=== PATIENT | male | born 1990 | race Caucasian/White ===

== ENCOUNTER 2018-04-30 12:03 | Inpatient (IN) | payer OTHER ==
[2018-04-30] MEDS ORDERED: CLINDAMYCIN 600 MG in DEXTROSE 5% IN WATER 50 ML IVPB STA ×2 (12:24)
--- NOTE | 2018-04-30 12:33 | ED ---
ENT HPI - General Chief complaint: Dental/Oral Stated complaint: Dental infection-face swollen Time Seen by Provider: 04/30/18 12:19 Source: patient, RN notes reviewed Mode of arrival: ambulatory Limitations: no limitations - History of Present Illness Initial comments: This is a 27-year-old male presents emergency Department with chief complaint of right-sided facial swelling pain. Patient states this started a few days ago in which she was initially seen in urgent care was given doxycycline. Patient then followed up with dentist and referred to another urgent care yesterday that he received IV antibiotics. His dentist prescribed him clindamycin 150 mg 4 times a day. Patient reports subjective fevers and chills at home. He complains of facial pain no headache no neck pain or neck stiffness. Patient denies any shortness of breath, cough or chest congestion. Patient states that they contact his dentist and told him that symptoms worsened again and he was advised to come emergency department. - Related Data Home Medications Medication Instructions Recorded Confirmed Clindamycin [Cleocin] 300 mg PO Q6H 04/30/18 04/30/18 Allergies Allergy/AdvReac Type Severity Reaction Status Date / Time No Known Allergies Allergy Verified 04/30/18 12:29 Review of Systems ROS Statement: Those systems with pertinent positive or pertinent negative responses have been documented in the HPI. ROS Other: All systems not noted in ROS Statement are negative. Past Medical History Past Medical History: No Reported History History of Any Multi-Drug Resistant Organisms: None Reported Additional Past Surgical History / Comment(s): Femur right side Past Psychological History: No Psychological Hx Reported Smoking Status: Current every day smoker Past Alcohol Use History: None Reported Past Drug Use History: None Reported General Exam Limitations: no limitations General appearance: alert, in no apparent distress Head exam: Present: atraumatic, normocephalic, normal inspection Eye exam: Present: normal appearance, PERRL, EOMI. Absent: scleral icterus, conjunctival injection, periorbital swelling ENT exam: Present: mucous membranes moist, TM's normal bilaterally, normal external ear exam. Absent: normal exam (Large amount of right maxillary facial swelling and erythema), normal oropharynx (Dental decay noted between #6 and 7) Neck exam: Present: normal inspection, full ROM. Absent: tenderness, meningismus, lymphadenopathy Respiratory exam: Present: normal lung sounds bilaterally. Absent: respiratory distress, wheezes, rales, rhonchi, stridor Cardiovascular Exam: Present: regular rate, normal rhythm, normal heart sounds. Absent: systolic murmur, diastolic murmur, rubs, gallop, clicks Neurological exam: Present: alert, oriented X3, CN II-XII intact, reflexes normal. Absent: motor sensory deficit Skin exam: Present: warm, dry, intact, normal color. Absent: rash Course Vital Signs 04/30/18 12:13 Temperature 99.5 F Pulse Rate 93 Respiratory 18 Rate Blood Pressure 121/80 O2 Sat by Pulse 97 Oximetry Medical Decision Making - Lab Data Result diagrams: 04/30/18 12:28 04/30/18 12:28 Lab Results 04/30/18 04/30/18 04/30/18 Range/Units 12:28 12:28 12:28 WBC 19.5 H (3.8-10.6) k/uL RBC 4.38 (4.30-5.90) m/uL Hgb 13.7 (13.0-17.5) gm/dL Hct 39.1 (39.0-53.0) % MCV 89.2 (80.0-100.0) fL MCH 31.4 (25.0-35.0) pg MCHC 35.2 (31.0-37.0) g/dL RDW 13.5 (11.5-15.5) % Plt Count 253 (150-450) k/uL Neutrophils % 79 % Lymphocytes % 12 % Monocytes % 5 % Eosinophils % 1 % Basophils % 0 % Neutrophils # 15.4 H (1.3-7.7) k/uL Lymphocytes # 2.4 (1.0-4.8) k/uL Monocytes # 1.0 (0-1.0) k/uL Eosinophils # 0.2 (0-0.7) k/uL Basophils # 0.1 (0-0.2) k/uL PT (9.0-12.0) sec INR (<1.2) APTT (22.0-30.0) sec Sodium 140 (137-145) mmol/L Potassium 4.6 (3.5-5.1) mmol/L Chloride 101 (98-107) mmol/L Carbon Dioxide 25 (22-30) mmol/L Anion Gap 14 mmol/L BUN 10 (9-20) mg/dL Creatinine 0.79 (0.66-1.25) mg/dL Est GFR (CKD-EPI)AfAm >90 (>60 ml/min/1.73 sqM) Est GFR (CKD-EPI)NonAf >90 (>60 ml/min/1.73 sqM) Glucose 112 H (74-99) mg/dL Plasma Lactic Acid Eleno 0.9 (0.7-2.0) mmol/L Calcium 9.5 (8.4-10.2) mg/dL Total Bilirubin 0.8 (0.2-1.3) mg/dL AST 23 (17-59) U/L ALT 51 (21-72) U/L Alkaline Phosphatase 73 (38-126) U/L Total Protein 7.0 (6.3-8.2) g/dL Albumin 4.5 (3.5-5.0) g/dL 04/30/18 Range/Units 12:28 WBC (3.8-10.6) k/uL RBC (4.30-5.90) m/uL Hgb (13.0-17.5) gm/dL Hct (39.0-53.0) % MCV (80.0-100.0) fL MCH (25.0-35.0) pg MCHC (31.0-37.0) g/dL RDW (11.5-15.5) % Plt Count (150-450) k/uL Neutrophils % % Lymphocytes % % Monocytes % % Eosinophils % % Basophils % % Neutrophils # (1.3-7.7) k/uL Lymphocytes # (1.0-4.8) k/uL Monocytes # (0-1.0) k/uL Eosinophils # (0-0.7) k/uL Basophils # (0-0.2) k/uL PT 10.7 (9.0-12.0) sec INR 1.1 (<1.2) APTT 23.1 (22.0-30.0) sec Sodium (137-145) mmol/L Potassium (3.5-5.1) mmol/L Chloride (98-107) mmol/L Carbon Dioxide (22-30) mmol/L Anion Gap mmol/L BUN (9-20) mg/dL Creatinine (0.66-1.25) mg/dL Est GFR (CKD-EPI)AfAm (>60 ml/min/1.73 sqM) Est GFR (CKD-EPI)NonAf (>60 ml/min/1.73 sqM) Glucose (74-99) mg/dL Plasma Lactic Acid Eleno (0.7-2.0) mmol/L Calcium (8.4-10.2) mg/dL Total Bilirubin (0.2-1.3) mg/dL AST (17-59) U/L ALT (21-72) U/L Alkaline Phosphatase (38-126) U/L Total Protein (6.3-8.2) g/dL Albumin (3.5-5.0) g/dL Disposition Clinical Impression: Dental abscess, Facial cellulitis, Failure of outpatient treatment Disposition: ADMITTED IP TO THIS [facility] Condition: Stable Referrals: Earl Hood DO [Primary Care Provider] - 1-2 days
[2018-04-30 12:51] LABS: Basophils # (A) 0.1 k/uL (0-0.2); Basophils % (A) 0 %; Eosinophils # (A) 0.2 k/uL (0-0.7); Eosinophils % (A) 1 %; HCT 39.1 % (39.0-53.0); HGB 13.7 gm/dL (13.0-17.5); Lymphocytes # (A) 2.4 k/uL (1.0-4.8); Lymphocytes % (A) 12 %; MCH 31.4 pg (25.0-35.0); MCHC 35.2 g/dL (31.0-37.0); MCV 89.2 fL (80.0-100.0); Mean Platelet Volume 6.8; Monocytes % (A) 5 %; Neutrophils # (A) 15.4 k/uL (1.3-7.7); Neutrophils % (A) 79 %; Platelet Count 253 k/uL (150-450); RBC 4.38 m/uL (4.30-5.90); RDW 13.5 % (11.5-15.5); WBC 19.5 k/uL (3.8-10.6)
[2018-04-30 12:58] LABS: INR 1.1 (<1.2); Partial Thromboplastin Time 23.1 sec (22.0-30.0); Prothrombin Time 10.7 sec (9.0-12.0)
[2018-04-30 13:02] LABS: ALT 51 U/L (21-72); AST 23 U/L (17-59); Albumin 4.5 g/dL (3.5-5.0); Alkaline Phosphatase 73 U/L (38-126); Anion Gap 14 mmol/L; Blood Urea Nitrogen 10 mg/dL (9-20); Calcium 9.5 mg/dL (8.4-10.2); Carbon Dioxide 25 mmol/L (22-30); Chloride 101 mmol/L (98-107); Glucose 112 mg/dL (74-99); Potassium 4.6 mmol/L (3.5-5.1); Sodium 140 mmol/L (137-145); Total Bilirubin 0.8 mg/dL (0.2-1.3)
--- NOTE | 2018-04-30 14:03 | CT ---
EXAMINATION TYPE: CT facial bones w con DATE OF EXAM: 04/30/2018 COMPARISON: NONE HISTORY: Perinasal facial swelling and pain CT DLP: 862 mGycm Automated exposure control for dose reduction was used. CONTRAST: CT scan of the facial bones is performed with IV Contrast, patient injected with 100 mL of Isovue 300 . TECHNIQUE: CT scan of the sinuses is performed without contrast, axial images are obtained, coronal r eformatted images are also reviewed. FINDINGS: There is abnormal soft tissue swelling at the area of patient's clinical abnormality along the face, nose and maxillary region right greater than left. No focal abscess evident. Increased dens ity present within the subcutaneous fat over the face on the right extending to the skin. Multiple te eth show decay. There are areas of periapical abscess present in the maxilla bilaterally. Bilateral m axillary sinuses show possible mucus retention cyst, inflammatory change, ostiomeatal units show soft tissue present on the right, left is patent. The orbits are intact. Mastoid air cells are well aerat ed and the visualized portions. No erosion of the scutum or thickening of the tympanic membranes, aud itory ossicles show a symmetric appearance. IMPRESSION: Extensive teeth decay. Sinus disease. Correlate for phlegmon, cellulitis over the base. N o focal abscess. Follow-up as indicated.
[2018-04-30] MEDS ORDERED: KETOROLAC 30 MG/ML 1 ML VIAL IVP PRN (14:14)
[2018-04-30] MEDS ORDERED: ONDANSETRON 4 MG/2 ML VIAL IVP PRN (14:14)
[2018-04-30] MEDS ORDERED: HYDROcodone/APAP 5-325MG 1 EACH TAB PO PRN (14:14)
[2018-04-30] MEDS ORDERED: ACETAMINOPHEN TAB 325 MG TAB PO PRN (14:14)
--- NOTE | 2018-04-30 19:15 | P.HPIM ---
History of Present Illness 27-year-old male presents emergency Department with chief complaint of right- sided facial swelling pain. Patient states this started a few days ago in which she was initially seen in urgent care was given doxycycline. Patient then followed up with dentist and referred to another urgent care yesterday that he received IV antibiotics. His dentist prescribed him clindamycin 150 mg 4 times a day. Patient reports subjective fevers and chills at home. He complains of facial pain no headache no neck pain or neck stiffness. Patient denies any shortness of breath, cough or chest congestion. Patient states that they contact his dentist and told him that symptoms worsened again and he was advised to come emergency department. Maxillofacial his surgery was consulted and the patient was started on Unasyn. Patient had a Panorex x-ray which is showing maxillary tooth on the right side blood cultures were obtained patient does have leukocytosis. Review of Systems REVIEW OF SYSTEMS: CONSTITUTIONAL: No fever, no malaise, no fatigue. HEENT: No recent visual problems or hearing problems. Denied any sore throat. CARDIOVASCULAR: No chest pain, orthopnea, PND, no palpitations, no syncope. PULMONARY: No shortness of breath, no cough, no hemoptysis. GASTROINTESTINAL: No diarrhea, no nausea, no vomiting, no abdominal pain. Normoactive bowel sounds. NEUROLOGICAL: No headaches, no weakness, no numbness. HEMATOLOGICAL: Denies any bleeding or petechiae. GENITOURINARY: Denies any burning micturition, frequency, or urgency. MUSCULOSKELETAL/RHEUMATOLOGICAL: Denies any joint pain, swelling, or any muscle pain. ENDOCRINE: Denies any polyuria or polydipsia. The rest of the 14-point review of systems is negative. Past Medical History Past Medical History: No Reported History Additional Past Medical History / Comment(s): BROKEN RT FEMUR(SX) History of Any Multi-Drug Resistant Organisms: None Reported Past Surgical History: Orthopedic Surgery Additional Past Surgical History / Comment(s): RT FEMUR- D/T BREAK Past Anesthesia/Blood Transfusion Reactions: No Reported Reaction Additional Past Anesthesia/Blood Transfusion Reaction / Comment(s): NEVER RECIEVED BLOOD Smoking Status: Current every day smoker - Past Family History Father Family Medical History: No Reported History Additional Family Medical History / Comment(s): "HEALTHY" Mother Additional Family Medical History / Comment(s): BEING WOKRED UP FOR COPD Medications and Allergies Home Medications Medication Instructions Recorded Confirmed Type Clindamycin [Cleocin] 300 mg PO Q6H 04/30/18 04/30/18 History Allergies Allergy/AdvReac Type Severity Reaction Status Date / Time No Known Allergies Allergy Verified 04/30/18 12:29 Physical Exam Vitals: Vital Signs Temp Pulse Pulse Resp BP BP Pulse Ox 04/30/18 16:08 99.2 F 87 16 146/78 97 04/30/18 15:43 99.7 F H 71 16 125/60 99 04/30/18 12:13 99.5 F 93 18 121/80 97 Intake and Output 04/30/18 04/30/18 04/30/18 06:59 14:59 22:59 Other: Weight 86.183 kg PHYSICAL EXAMINATION: GENERAL: The patient is alert and oriented x3, not in any acute distress. Well developed, well nourished. HEENT: Pupils are round and equally reacting to light. EOMI. No scleral icterus. No conjunctival pallor. Normocephalic, atraumatic. No pharyngeal erythema. No thyromegaly. Patient appears to have right second in 6 to swelling with a right-sided facial swelling with some cellulitic changes on the right side of the face below the right eye. CARDIOVASCULAR: S1 and S2 present. No murmurs, rubs, or gallops. PULMONARY: Chest is clear to auscultation, no wheezing or crackles. ABDOMEN: Soft, nontender, nondistended, normoactive bowel sounds. No palpable organomegaly. MUSCULOSKELETAL: No joint swelling or deformity. EXTREMITIES: No cyanosis, clubbing, or pedal edema. NEUROLOGICAL: Gross neurological examination did not reveal any focal deficits. SKIN: No rashes. Results CBC & Chem 7: 04/30/18 12:28 04/30/18 12:28 Labs: Abnormal Lab Results - Last 24 Hours (Table) 04/30/18 04/30/18 Range/Units 12:28 12:28 WBC 19.5 H (3.8-10.6) k/uL Neutrophils # 15.4 H (1.3-7.7) k/uL Glucose 112 H (74-99) mg/dL Thrombosis Risk Factor Assmnt - Choose All That Apply Any of the Below Risk Factors Present?: No Assessment and Plan Plan: -Sepsis: Secondary to dental abscess patient will be started on Unasyn maxillofacial surgeon was consulted Nicotine abuse: Counseling was provided -Leukocytosis secondary to dental abscess which may need surgical intervention
[2018-04-30] MEDS ORDERED: CLINDAMYCIN 600 MG in DEXTROSE 5% IN WATER 50 ML IVPB SCH ×2 (20:00)
[2018-04-30] MEDS: SODIUM CHLORIDE 0.9% 1,000 ML IV SCH (20:33)
[2018-04-30] MEDS: AMPICILLIN-SULBACTAM 3 GM in SODIUM CHLORIDE 0.9% 100 ML IVPB SCH (20:33)
[2018-04-30 23:04] VITALS: RESP 18
[2018-05-01] MEDS: AMPICILLIN-SULBACTAM 3 GM in SODIUM CHLORIDE 0.9% 100 ML IVPB SCH ×2 (01:00→05:50)
[2018-05-01] MEDS: SODIUM CHLORIDE 0.9% 1,000 ML IV SCH (05:50)
[2018-05-01 06:00] VITALS: BP 131/61; PULSE 72; TEMP 98.4
--- NOTE | 2018-05-01 08:53 | CONS ---
CONSULTATION DATE OF SERVICE: 04/30/2018 CHIEF COMPLAINT: "My face is swollen." HISTORY OF PRESENT ILLNESS: The patient states that the right mid face started to swell approximately 2 to 3 days ago. He states that it progressively worsened. He presents to the ER. He was evaluated and then admitted for IV antibiotics. A CT scan was also taken at that time, which showed cellulitis of the right infraorbital region and paranasal region. The patient states that the right lateral incisor is tender to palpation. PAST MEDICAL HISTORY: The patient denies any cardiopulmonary disease, endocrine disease, blood dyscrasias, GI, disease or musculoskeletal disease or neurologic disease. MEDICATIONS: None. ALLERGIES: None. PAST SURGICAL HISTORY: The patient had a right central maxillary central incisor implant placed previously. PHYSICAL EXAMINATION: The patient is resting comfortably in bed. His vital signs are stable. He is afebrile. Head and neck examination reveals moderate swelling of the right paranasal region with tenderness to palpation. The area is somewhat fluctuant. Intraoral examination reveals tooth #7 to be carious with mild swelling of the facial vestibule. The tooth is tender to palpation. Several other carious lesions are noted. There are no other oral or pharyngeal lesions noted. ASSESSMENT: 1. Right infraorbital paranasal cellulitis/abscess. 2. Necrotic tooth #10. PLAN: The patient will be discharged this morning and sent to my office for I and D of the area and surgical extraction of tooth #10. MMODL / IJN: [id number] /
[2018-05-01 09:05] LABS: HCT 35.8 % (39.0-53.0); HGB 12.3 gm/dL (13.0-17.5); MCH 30.6 pg (25.0-35.0); MCHC 34.3 g/dL (31.0-37.0); Mean Platelet Volume 6.9; Platelet Count 252 k/uL (150-450); RBC 4.03 m/uL (4.30-5.90); RDW 13.8 % (11.5-15.5); WBC 16.5 k/uL (3.8-10.6)
[2018-05-01 09:16] LABS: Anion Gap 12 mmol/L; Blood Urea Nitrogen 13 mg/dL (9-20); Calcium 9.2 mg/dL (8.4-10.2); Carbon Dioxide 26 mmol/L (22-30); Chloride 103 mmol/L (98-107); Glucose 93 mg/dL (74-99); Potassium 4.7 mmol/L (3.5-5.1); Sodium 141 mmol/L (137-145)
--- NOTE | 2018-05-01 17:48 | P.DS ---
Providers Date of admission: 04/30/18 15:25 Expected date of discharge: 05/01/18 Attending physician: Gilbert Fermin Consults: 04/30/18 14:14 Consult Physician Stat Consulting Provider: Ananda Dean Consult Reason/Comments: Dental abscess Do you want consulting provider notified?: Yes Primary care physician: [facility] Course: Final Diagnoses: -Sepsis: Secondary to dental abscess patient will be started on Unasyn maxillofacial surgeon was consulted Nicotine abuse: Counseling was provided -Leukocytosis secondary to dental abscess which may need surgical intervention Hospital course: This is a 27-year-old male presents emergency Department with chief complaint of right-sided facial swelling pain. Patient states this started a few days ago in which she was initially seen in urgent care was given doxycycline. Patient then followed up with dentist and referred to another urgent care yesterday that he received IV antibiotics. His dentist prescribed him clindamycin 150 mg 4 times a day. Patient reports subjective fevers and chills at home. He complains of facial pain no headache no neck pain or neck stiffness. Patient denies any shortness of breath, cough or chest congestion. Patient states that they contact his dentist and told him that symptoms worsened again and he was advised to come emergency department. Maxillofacial/oral surgery was consulted and the patient was started on Unasyn. Patient had a Panorex x-ray which is showing maxillary tooth on the right side blood cultures were obtained patient does have leukocytosis. Significant clinical improvement on IV antibiotics. Preliminary blood cultures negative at 24 hours. T-max 99.7. Patient is being discharged this morning, following up with Dr. Dianne DDS at noon today. Possible surgical intervention. Patient is being discharged in stable condition with guarded prognosis. .GENERAL: The patient is alert and oriented x3, not in any acute distress. Well developed, well nourished. HEENT: Pupils are round and equally reacting to light. EOMI. No scleral icterus. No conjunctival pallor. Normocephalic, atraumatic. No pharyngeal erythema. No thyromegaly. Patient appears to have right-sided facial swelling with some cellulitic changes on the right side of the face below the right eye. CARDIOVASCULAR: S1 and S2 present. No murmurs, rubs, or gallops. PULMONARY: Chest is clear to auscultation, no wheezing or crackles. ABDOMEN: Soft, nontender, nondistended, normoactive bowel sounds. No palpable organomegaly. MUSCULOSKELETAL: No joint swelling or deformity. EXTREMITIES: No cyanosis, clubbing, or pedal edema. NEUROLOGICAL: Gross neurological examination did not reveal any focal deficits. SKIN: No rashes. The impression and plan of care has been dictated as directed. : I performed a history and examination of this patient, discussed the same with the dictator. I agree with the dictator's note ,documented as a scribe. Any additional findings or plans will be noted. Time taken: 35 minutes Patient Condition at Discharge: Stable Plan - Discharge Summary Discharge Rx Participant: Yes New Discharge Prescriptions: New Acetaminophen Tab [Tylenol] 650 mg PO Q6HR PRN tab PRN Reason: Mild Pain Or Fever > 100.5 Amoxic-Pot Clav 875-125Mg [Augmentin 875-125] 1 tab PO Q12HR #14 tablet Discontinued Clindamycin [Cleocin] 300 mg PO Q6H Discharge Medication List Acetaminophen Tab [Tylenol] 650 mg PO Q6HR PRN tab 05/01/18 [Rx] Amoxic-Pot Clav 875-125Mg [Augmentin 875-125] 1 tab PO Q12HR #14 tablet [Rx] Follow up Appointment(s)/Referral(s): Earl Hood DO [Primary Care Provider] - 05/08/18 1:45 pm Ananda Dean DDS [STAFF PHYSICIAN] - 05/01/18 12:00 pm Ambulatory/Diagnostic Orders: Complete Blood Count w/diff [LAB.AMB] Time Frame: 3 Days, Location: Determined By Patient Patient Instructions/Handouts: Dental Abscess (GEN) Activity/Diet/Wound Care/Special Instructions: Soft diet. Activity as tolerated. NO smoking. Cessation information provided. Discharge Disposition: HOME SELF-CARE
--- NOTE | 2018-05-02 10:29 | XR ---
EXAMINATION TYPE: XR panorex DATE OF EXAM: 04/30/2018 COMPARISON: NONE HISTORY: Pain and swelling TECHNIQUE: Single view Panorex FINDINGS: The mandibular ring appears intact. I see no fracture. I see no focal bone destruction. IMPRESSION: Negative Panorex exam.
== END 2018-05-01 10:51 | disposition home or self-care (01) | DRG 872 ==
LOC: EC 12:03 → 4MS4W 15:25
PROVIDERS: ADMIT Internal Medicine; ATTEND Internal Medicine
DX: A41.9 Sepsis, unspecified organism (principal); L03.211 Cellulitis of face; K04.7 Periapical abscess without sinus; F17.200 Nicotine dependence, unspecified, uncomplicated; K04.1 Necrosis of pulp; Z71.6 Tobacco abuse counseling; Z79.2 Long term (current) use of antibiotics
CPT/HCPCS: 36415; 70355; 70487; 80048; 80053; 83605; 85025; 85027; 85610; 85730; 87040; 96365; 96366; 99284

== ENCOUNTER 2023-09-10 06:36 | Emergency (ER) | payer BC, OTHER ==
--- NOTE | 2023-09-10 07:30 | ED ---
General Adult HPI - General Chief complaint: Extremity Injury, Lower Stated complaint: Left Ankle Pain Time Seen by Provider: 09/10/23 07:15 Source: patient, RN notes reviewed Mode of arrival: ambulatory Limitations: no limitations - History of Present Illness Initial comments: Patient is a pleasant 33-year-old male presenting to the emergency department with concern of left ankle pain. Patient states symptoms have been a few days ago. Patient states he was drinking alcohol and did run into the store and does not recall what happened. Patient has some discomfort of his left anterior ankle left dorsal distal foot. Discomfort does increase with ambulation however patient is able to ambulate with pain. No other area of injury or concern. - Related Data Previous Rx's Medication Instructions Recorded Acetaminophen Tab [Tylenol] 650 mg PO Q6HR PRN tab 05/01/18 Amoxic-Pot Clav 875-125Mg 1 tab PO Q12HR #14 tablet 05/01/18 [Augmentin 875-125] Ibuprofen [Motrin] 600 mg PO Q6HR PRN #20 tab 09/10/23 Allergies Allergy/AdvReac Type Severity Reaction Status Date / Time No Known Allergies Allergy Verified 09/10/23 06:54 Review of Systems ROS Statement: Those systems with pertinent positive or pertinent negative responses have been documented in the HPI. ROS Other: All systems not noted in ROS Statement are negative. Constitutional: Denies: fever Eyes: Denies: eye pain ENT: Denies: ear pain Respiratory: Denies: cough Cardiovascular: Denies: chest pain Endocrine: Denies: fatigue Gastrointestinal: Denies: abdominal pain Genitourinary: Denies: dysuria Musculoskeletal: Reports: as per HPI Skin: Denies: rash Neurological: Denies: headache, weakness Past Medical History Past Medical History: No Reported History Additional Past Medical History / Comment(s): BROKEN RT FEMUR(SX) History of Any Multi-Drug Resistant Organisms: None Reported Past Surgical History: Orthopedic Surgery Additional Past Surgical History / Comment(s): RT FEMUR- D/T BREAK Past Anesthesia/Blood Transfusion Reactions: No Reported Reaction Additional Past Anesthesia/Blood Transfusion Reaction / Comment(s): NEVER RECIEVED BLOOD Past Psychological History: No Psychological Hx Reported Smoking Status: Current every day smoker Past Alcohol Use History: Daily Past Drug Use History: None Reported - Past Family History Father Family Medical History: No Reported History Additional Family Medical History / Comment(s): "HEALTHY" Mother Additional Family Medical History / Comment(s): BEING WOKRED UP FOR COPD General Exam Limitations: no limitations General appearance: alert, in no apparent distress Head exam: Present: atraumatic Eye exam: Present: normal appearance Neck exam: Present: normal inspection. Absent: tenderness Respiratory exam: Present: normal lung sounds bilaterally Cardiovascular Exam: Present: regular rate, normal rhythm Expanded Peripheral pulses: 2+: Dorsalis Pedis (R), Dorsalis Pedis (L) GI/Abdominal exam: Present: soft. Absent: tenderness Extremities exam: Present: normal inspection, tenderness (Minimal tenderness left anterior ankle.), normal capillary refill, other (Distally the extremity is neurovascular intact.) Neurological exam: Present: alert Psychiatric exam: Present: normal affect, normal mood Skin exam: Present: normal color Course Vital Signs 09/10/23 09/10/23 06:54 07:57 Temperature 98.7 F Pulse Rate 119 H 98 Respiratory 18 Rate Blood Pressure 159/96 O2 Sat by Pulse 98 97 Oximetry Medical Decision Making - Medical Decision Making Was pt. sent in by a medical professional or institution (, PA, CRITICAL CARE PARAMEDIC, urgent care, hospital, or care home...) When possible be specific @ -No Did you speak to anyone other than the patient for history (EMS, parent, family, police, friend...)? What history was obtained from this source @ - is present and helps provide history Did you review nursing and triage notes (agree or disagree)? Why? @ -I reviewed and agree with nursing and triage notes Were old charts reviewed (outside hosp., previous admission, EMS record, old EKG, old radiological studies, urgent care reports/EKG's, care home records)? Report findings @ -No old charts were reviewed Differential Diagnosis (chest pain, altered mental status, abdominal pain women, abdominal pain men, vaginal bleeding, weakness, fever, dyspnea, syncope, headache, dizziness, GI bleed, back pain, seizure, CVA, palpatations, mental health, musculoskeletal)? @ -Differential Musculoskeletal Muscular strain, contusion, ligament sprain, fracture, arthritis, septic arthritis, bursitis, cellulitis, muscle spasm, nerve compression, DVT, arterial occlusion, herpes zoster, electrolyte abnormality, tumor.... This is not meant to be in all inclusive list EKG interpreted by me (3pts min.). @ -As above X-rays interpreted by me (1pt min.). @ -X-ray left foot and left ankle reveals no evidence of fracture CT interpreted by me (1pt min.). @ -None done U/S interpreted by me (1pt. min.). @ -None done What testing was considered but not performed or refused? (CT, X-rays, U/S, labs)? Why? @ -None What meds were considered but not given or refused? Why? @ -None Did you discuss the management of the patient with other professionals (professionals i.e. , PA, CRITICAL CARE PARAMEDIC, lab, RT, psych nurse, social insurance administrator, machine maintenance supervisor, teacher, quarantine officer, leather case finisher)? Give summary @ -No Was smoking cessation discussed for >3mins.? @ -No Was critical care preformed (if so, how long)? @ -No Were there social determinants of health that impacted care today? How? (Homelessness, low income, unemployed, alcoholism, drug addiction, transportation, low edu. Level, literacy, decrease access to med. care, halfway, rehab)? @ -No Was there de-escalation of care discussed even if they declined (Discuss DNR or withdrawal of care, Hospice)? DNR status @ -No What co-morbidities impacted this encounter? (DM, HTN, Smoking, COPD, CAD, Cancer, CVA, ARF, Chemo, Hep., AIDS, mental health diagnosis, sleep apnea, morbid obesity)? @ -None Was patient admitted / discharged? Hospital course, mention meds given and route, prescriptions, significant lab abnormalities, going to OR and other pertinent info. @ -Patient reevaluated. Patient and family updated on results and plan. Patient would like to return back to work. Patient will be provided air splint. Undiagnosed new problem with uncertain prognosis? @ -No Drug Therapy requiring intensive monitoring for toxicity (Heparin, Nitro, Insulin, Cardizem)? @ -No Were any procedures done? @ -No Diagnosis/symptom? @ -Left foot and ankle sprain Acute, or Chronic, or Acute on Chronic? @ -Acute Uncomplicated (without systemic symptoms) or Complicated (systemic symptoms)? @ -default Side effects of treatment? @ -No Exacerbation, Progression, or Severe Exacerbation? @ -No Poses a threat to life or bodily function? How? (Chest pain, USA, MS, pneumonia, PE, COPD, DKA, ARF, appy, cholecystitis, CVA, Diverticulitis, Homicidal, Suicidal, threat to staff... and all critical care pts) @ -No Disposition Clinical Impression: Ankle sprain Disposition: HOME SELF-CARE Condition: Stable Instructions (If sedation given, give patient instructions): Foot Sprain (ED), Ankle Sprain (ED) Additional Instructions: Please do follow-up to primary care physician in the next couple days for recheck. Prescription for Motrin 600 sent to pharmacy. Return for increased pain, swelling, worsening symptoms or other concerns. Ice to affected area. Prescriptions: Ibuprofen [Motrin] 600 mg PO Q6HR PRN #20 tab PRN Reason: Pain Is patient prescribed a controlled substance at d/c from ED?: No Referrals: William Martinez MD [STAFF PHYSICIAN] - 1-2 days Time of Disposition: 08:11
--- NOTE | 2023-09-10 07:51 | XR ---
EXAMINATION TYPE: XR ankle complete LT, XR foot complete LT DATE OF EXAM: 09/10/2023 COMPARISON: NONE HISTORY: Pain TECHNIQUE: Frontal, lateral, and oblique views of the left ankle and foot are obtained. FINDINGS: There is no evidence for fracture or dislocation. Ankle mortise is intact. Mild soft tissue swelling of the ankle. No radiopaque foreign body. IMPRESSION: 1. No evidence for acute fracture. 2. Mild soft tissue swelling the ankle.
[2023-09-10] MEDS ORDERED: ACET/COD 300 MG/30 MG STARTER PACK 6 TAB BTL PO STA (08:07)
[2023-09-10 09:07] VITALS: BP 128/90; PULSE 102; RESP 16; TEMP 98.2
== END 2023-09-10 08:55 | disposition home or self-care (01) ==
LOC: EC 06:36
DX: S93.402A Sprain of unspecified ligament of left ankle, initial encounter (principal); F17.200 Nicotine dependence, unspecified, uncomplicated; X58.XXXA Exposure to other specified factors, initial encounter
CPT/HCPCS: 99283